=== PATIENT | male | born 1970 | race Caucasian/White ===

== ENCOUNTER 2024-08-18 08:24 | Outpatient (CLI) | payer BC, SELFPAY ==
[2024-08-18 10:36] LABS: CORTISOL AM 4.58 ug/dL (6.02-18.40)
== END 2024-08-18 23:59 | disposition home or self-care (01) ==
LOC: MTLAB 08:26
PROVIDERS: PCP Family Medicine; Referring Provider Family Medicine; Visit Provider Family Medicine
DX: F41.9 Anxiety disorder, unspecified (principal)
CPT/HCPCS: 36415; 82533